=== PATIENT | female | born 1965 | race Caucasian/White ===

== ENCOUNTER → 2024-11-02 | Outpatient (CLI) | payer BC, SELFPAY ==
--- NOTE | 2024-11-02 14:37 | RAD_ITS ---
PROCEDURE: PELVIS 1 OR 2 VIEWS 11/02/2024 REASON FOR EXAM: PAIN TECHNIQUE: Procedure Code: RADPEL Modality: DX Procedure: PELVIS 1 OR 2 VIEWS COMPARISON: None FINDINGS: Hardware: None Bones: Enthesopathy is seen at the iliac crests, iliac spines and greater trochanters. Subtle lucency in the femoral neck and possibly the proximal metadiaphysis. Joints: Normal alignment at the hips and sacroiliac joints. soft tissues: Soft tissues are unremarkable. RAD/Pelvis 1 or 2 Views IMPRESSION: No displaced fracture seen. Very subtle hairline lucency in the right femoral neck and proximal metadiaphysis. These may represent normal variations in bone mineral density, but nondisplaced, hairline fractures are consideration. Correlate with right hip pain. If there is pain, consider CT scanning. Reading Location: [id number]
[2024-11-02 17:38] LABS: Hematocrit 40.9 % (37-47); Hemoglobin 13.3 g/dL (12.0-15.0); Immature Granulocytes Count 0.020 X10^3/uL (0.0-0.0); Mean Corp Hgb Conc 32.5 g/dL (32-36); Mean Corpuscular Volume 94.5 fL (81-99); Mean Platelet Vol. 9.6 fl (6.2-12.0); NRBC Flagged by Analyzer 0 % (0-5); Platelet Count 277 K/mm3 (150-450); RBC Distribution Width CV 13.0 % (11.6-14.6); RBC Distribution Width SD 45.1 fl (35.1-43.9); Red Blood Count 4.33 M/mm3 (4.2-5.4); White Blood Count 8.0 K/mm3 (4.4-11.0)
[2024-11-02 18:22] LABS: AST(SGOT) 22 U/L (<=31); Alanine Aminotransfer ALT/SGPT 21 U/L (<=34); Albumin, Serum 4.3 g/dL (3.5-5.0); Alkaline Phosphatase 47 U/L (35-104); BUN 19 mg/dL (4-19); BUN/Creat Ratio 31.1 RATIO (10-20); Calcium,Total 9.5 mg/dL (7.6-11.0); Carbon Dioxide 26.1 mmol/L (21.0-32.0); Chloride 101 mmol/L (98-108); Globulin 2.9 g/dL (2.2-4.2); Glucose 88 mg/dL (70-99); Potassium 4.4 mmol/L (3.3-5.1)
[2024-11-02 18:23] LABS: Anion Gap 12 (5-15); Hepatitis C Antibody Nonreactive (Nonreactive)
[2024-11-02 18:43] LABS: CRP 14.70 mg/L (0.0-3.0)
[2024-11-04 15:08] LABS: ANTINUCLEAR ANTIBODIES DIRECT Negative (Negative)
[2024-11-10 17:08] LABS: HEPATITIS B SURFACE AG Negative (Negative); HLA B27 Negative (.); Hep B Surface Antibodies Non Reactive (.); QNTFERON TB Mitogen Value > 10.00 IU/mL (.); QNTFERON TB Nil Value 0.06 IU/mL (.); QNTFERON TB1+ Ag Value 0.23 IU/mL (.); QNTFERON TB2+ Ag Value 0.32 IU/mL (.); QNTIFERON TB Positive Criteria Negative (Negative); Red Blood Cell Count Test/G6PD 4.44 x10E6/uL (3.77-5.28)
== END | disposition home or self-care (01) ==
LOC: MTLAB 14:29
PROVIDERS: PCP Family Medicine; Referring Provider Internal Medicine Rheumatology; Visit Provider Internal Medicine Rheumatology
DX: M06.4 Inflammatory polyarthropathy (principal); M18.0 Bilateral primary osteoarthritis of first carpometacarpal joints; M19.041 Primary osteoarthritis, right hand; Z79.899 Other long term (current) drug therapy
CPT/HCPCS: 36415; 72170; 80053; 81374; 82955; 85025; 85652; 86038; 86140; 86200; 86431; 86480; 86706; 86803; 87340

== ENCOUNTER → 2025-01-18 | Outpatient (CLI) | payer BC, SELFPAY ==
[2025-01-18 17:43] LABS: Hematocrit 38.9 % (37-47); Hemoglobin 12.4 g/dL (12.0-15.0); Immature Granulocytes Count 0.020 X10^3/uL (0.0-0.0); Mean Corp Hgb Conc 31.9 g/dL (32-36); Mean Corpuscular Volume 94.9 fL (81-99); Mean Platelet Vol. 10.8 fl (6.2-12.0); NRBC Flagged by Analyzer 0 % (0-5); Platelet Count 222 K/mm3 (150-450); RBC Distribution Width CV 13.2 % (11.6-14.6); RBC Distribution Width SD 45.8 fl (35.1-43.9); Red Blood Count 4.10 M/mm3 (4.2-5.4); White Blood Count 7.5 K/mm3 (4.4-11.0)
[2025-01-18 18:08] LABS: AST(SGOT) 27 U/L (<=31); Alanine Aminotransfer ALT/SGPT 30 U/L (<=34); Albumin, Serum 4.0 g/dL (3.5-5.0); Alkaline Phosphatase 54 U/L (35-104); Anion Gap 10 (5-15); BUN 18 mg/dL (4-19); BUN/Creat Ratio 29.9 RATIO (10-20); Calcium,Total 9.0 mg/dL (7.6-11.0); Carbon Dioxide 27.6 mmol/L (21.0-32.0); Chloride 102 mmol/L (98-108); Globulin 2.5 g/dL (2.2-4.2); Glucose 95 mg/dL (70-99); Potassium 4.4 mmol/L (3.3-5.1)
== END | disposition home or self-care (01) ==
LOC: MTLAB 16:06
PROVIDERS: PCP Family Medicine; Referring Provider Internal Medicine Rheumatology; Visit Provider Internal Medicine Rheumatology
DX: M06.4 Inflammatory polyarthropathy (principal); Z79.899 Other long term (current) drug therapy
CPT/HCPCS: 36415; 80053; 85025